=== PATIENT | male | born 1980 | race Caucasian/White ===

== ENCOUNTER 2017-12-31 14:11 | Emergency (ER) | payer MEDICAID ==
[~2017-12-31 14:11] MED LIST: HYDR-565 PO; NAPR-996 PO
[2018-01-01] MEDS ORDERED: BACDS PO (07:32)
[2018-01-01] MEDS ORDERED: CEPH500C5 PO (07:32)
[2018-01-01] MEDS ORDERED: ONDA4TAB12 PO (07:32)
[2018-01-01] MEDS ORDERED: HYDR-3965 PO (07:43)
== END 2017-12-31 15:22 | disposition left against medical advice (07) ==
LOC: ER 14:11
DX: M79.643 Pain in unspecified hand (principal); Z53.21 Procedure and treatment not carried out due to patient leaving prior to being seen by health care provider

== ENCOUNTER 2018-01-01 06:53 | Emergency (ER) | payer MEDICAID ==
[~2018-01-01] VITALS: Ht 172.7 cm; Wt 74.0 kg
[2018-01-01] MEDS ORDERED: piperacillin/tazo 3.375gm/50ml 50 ML IV STA (07:18)
[2018-01-01] MEDS ORDERED: gentamicin inj 350 MG in normal saline 100ml IV soln 100 ML IV STA (07:18)
[2018-01-01] MEDS ORDERED: CEPH500C5 PO (07:32)
[2018-01-01] MEDS ORDERED: ONDA4TAB12 PO (07:32)
[2018-01-01] MEDS ORDERED: BACDS PO (07:32)
[2018-01-01] MEDS ORDERED: HYDR-3965 PO (07:43)
[2018-01-01 09:50] VITALS: BP 102/56
== END 2018-01-01 09:52 | disposition home or self-care (01) ==
LOC: ER 06:53
DX: T81.4XXA Infection following a procedure, initial encounter (principal); Z86.14 Personal history of Methicillin resistant Staphylococcus aureus infection; Z56.0 Unemployment, unspecified; Z59.0 Homelessness; Z79.899 Other long term (current) drug therapy; Y83.9 Surgical procedure, unspecified as the cause of abnormal reaction of the patient, or of later complication, without mention of misadventure at the time of the procedure; Y92.89 Other specified places as the place of occurrence of the external cause
CPT/HCPCS: 96365; 96367; 99284; J1580; J2543; J7030

== ENCOUNTER 2018-01-06 20:07 | Emergency (ER) | payer MEDICAID ==
[~2018-01-06] VITALS: Ht 172.7 cm; Wt 74.5 kg
[~2018-01-06 20:07] MED LIST changes: +BACDS PO; +CEPH500C5 PO; +HYDR-3965 PO; +ONDA4TAB12 PO
[2018-01-06] MEDS ORDERED: HYDROcodone/acetaminophen 10/325mg tab PO ONE (21:50)
[2018-01-06 22:18] LABS: BASOPHILS # (AUTO) 0.1 X10'3 (0-0.2); BASOPHILS % (AUTO) 0.6 % (0-1); EOSINOPHILS # (AUTO) 0.2 X10'3 (0-0.9); EOSINOPHILS % (AUTO) 2.3 % (0-6); HEMATOCRIT 39.1 % (42.0-52.0); HEMOGLOBIN 13.3 g/dl (14.0-17.9); LYMPHOCYTES # (AUTO) 2.1 X10'3 (1.1-4.8); LYMPHOCYTES % (AUTO) 19.9 % (21-51); MEAN CORPUSCULAR HEMOGLOBIN 31.1 PG (27.0-31.0); MEAN CORPUSCULAR VOLUME 91.7 FL (78-98); MEAN PLATELET VOLUME 6.2 FL (7.4-10.4); MONOCYTES # (AUTO) 0.7 X10'3 (0-0.9); MONOCYTES % (AUTO) 6.7 % (2-12); NEUTROPHILS # (AUTO) 7.4 X10'3 (1.8-7.7); NEUTROPHILS % (AUTO) 70.5 % (42-75); PLATELET COUNT 398 X10'3 (140-440); RED BLOOD COUNT 4.26 X10'6 (4.70-6.10); RED CELL DISTRIBUTION WIDTH 13.6 % (11.5-14.5); WHITE BLOOD COUNT 10.6 X10'3 (4.5-11.0)
[2018-01-06 22:27] LABS: ALBUMIN 3.4 G/DL (3.4-5.0); BLOOD UREA NITROGEN 17 MG/DL (7-18); BUN/CREATININE RATIO 14.7 (5.4-32.0); CALCIUM 9.2 MG/DL (8.5-10.1); CHLORIDE 102 MMOL/L (99-107); CREATININE 1.16 MG/DL (0.60-1.10); GLUCOSE 123 MG/DL (70-104); TOTAL CARBON DIOXIDE 29.2 MMOL/L (24-32); eGFR 71 ML/MIN
[2018-01-06 22:40] LABS: ANION GAP 7 (8-16); SODIUM 138 MMOL/L (135-145)
[2018-01-06] MEDS ORDERED: IBUP-1984 PO (22:51)
[2018-01-06] MEDS ORDERED: HYDR-3965 PO (22:51)
[2018-01-06 23:00] VITALS: BP 136/82
== END 2018-01-06 23:14 | disposition home or self-care (01) ==
LOC: ER 20:08
DX: G89.18 Other acute postprocedural pain (principal); M79.89 Other specified soft tissue disorders; M25.531 Pain in right wrist; Z59.0 Homelessness; Z56.0 Unemployment, unspecified; Z98.890 Other specified postprocedural states
CPT/HCPCS: 29125; 36415; 73130; 80048; 85025; 99284

== ENCOUNTER 2018-09-11 22:44 | Emergency (ER) | payer MEDICAID ==
[~2018-09-11 22:44] MED LIST changes: -BACDS PO; -HYDR-3965 PO; -HYDR-565 PO
== END 2018-09-11 22:56 | disposition left against medical advice (07) ==
LOC: ER 22:45
DX: R51 Headache (principal); Z53.21 Procedure and treatment not carried out due to patient leaving prior to being seen by health care provider

== ENCOUNTER 2019-11-25 01:57 | Emergency (ER) | payer MEDICAID ==
[~2019-11-25] VITALS: Ht 172.7 cm; Wt 72.7 kg
[~2019-11-25 01:57] MED LIST changes: -CEPH500C5 PO
[2019-11-25] MEDS ORDERED: tropicamide 0.5% ophthalmic drops 15ml EACHEYE ONE (02:15)
[2019-11-25] MEDS ORDERED: pilocarpine 2% ophthalmic drops 15ml EACHEYE ONE (02:15)
[2019-11-25] MEDS ORDERED: oxyCODONE/APAP 10/325mg tablet PO ONE (02:15)
[2019-11-25] MEDS ORDERED: ERYT1OIN6 EACHEYE (02:45)
[2019-11-25] MEDS ORDERED: erythromycin ophthalmic ointment 1gm tube EACHEYE ONE (02:45)
[2019-11-25] MEDS ORDERED: OXYC-150 PO (02:45)
--- NOTE | 2019-11-25 02:53 | NUR ---
Carlos ferro in [facility] - 11/25/19 at 0256 by BAO CHEST X RAY AT BEDSIDE
[2019-11-25 03:18] VITALS: BP 116/83
== END 2019-11-25 03:20 | disposition home or self-care (01) ==
LOC: ER 01:58
DX: H16.133 Photokeratitis, bilateral (principal); Z59.0 Homelessness; Z56.0 Unemployment, unspecified; Z86.14 Personal history of Methicillin resistant Staphylococcus aureus infection; Z98.890 Other specified postprocedural states
CPT/HCPCS: 99283; 99284

== ENCOUNTER 2019-12-03 06:23 | Emergency (ER) | payer MEDICAID ==
[~2019-12-03] VITALS: Ht 172.7 cm; Wt 75.0 kg
[~2019-12-03 06:23] MED LIST changes: +ERYT1OIN6 EACHEYE; +OXYC-150 PO
[2019-12-03] MEDS ORDERED: bupivacaine 0.25%/epinephrine 1:200,000 inj (contains preserv. MDV) IJ ONE (08:55)
[2019-12-03] MEDS ORDERED: penicillin V potassium 500mg tablet PO ONE (08:55)
[2019-12-03] MEDS ORDERED: PENI500T2 PO (09:20)
[2019-12-03] MEDS ORDERED: IBUP-1984 PO (09:20)
[2019-12-03 10:07] VITALS: BP 122/79
== END 2019-12-03 10:09 | disposition home or self-care (01) ==
LOC: ER 06:23
DX: K04.7 Periapical abscess without sinus (principal); K03.81 Cracked tooth; Z86.14 Personal history of Methicillin resistant Staphylococcus aureus infection; Z98.890 Other specified postprocedural states; Z56.0 Unemployment, unspecified; Z79.899 Other long term (current) drug therapy
CPT/HCPCS: 64400; 99284

== ENCOUNTER 2020-02-10 22:05 | Emergency (ER) | payer MEDICAID ==
[~2020-02-10] VITALS: Ht 172.7 cm; Wt 72.7 kg
[~2020-02-10 22:05] MED LIST changes: -ERYT1OIN6 EACHEYE
[2020-02-10] MEDS ORDERED: proparacaine 0.5% ophthalmic drops 15ml EACHEYE ONE (22:20)
[2020-02-10] MEDS ORDERED: HYDR-3965 PO (22:37)
[2020-02-10] MEDS ORDERED: ERYT1OIN6 EACHEYE (22:37)
[2020-02-10] MEDS ORDERED: HYDROcodone/acetaminophen 5mg/325mg tablet PO ONE (22:40)
[2020-02-10 22:46] VITALS: BP 106/53
== END 2020-02-10 23:08 | disposition home or self-care (01) ==
LOC: ER 22:05
DX: H57.89 Other specified disorders of eye and adnexa (principal); H57.13 Ocular pain, bilateral; Z98.890 Other specified postprocedural states; Z56.0 Unemployment, unspecified; Z86.14 Personal history of Methicillin resistant Staphylococcus aureus infection; Z79.2 Long term (current) use of antibiotics; Z79.899 Other long term (current) drug therapy
CPT/HCPCS: 99283

== ENCOUNTER 2020-03-01 20:48 | Emergency (ER) | payer MEDICAID ==
[~2020-03-01] VITALS: Ht 172.7 cm; Wt 72.7 kg
[2020-03-01] MEDS ORDERED: normal saline 1000ML IV soln IVB ONE (21:05)
[2020-03-01] MEDS ORDERED: ondansetron/PF 4mg/2ml inj IV ONE (21:05)
--- NOTE | 2020-03-01 21:15 | NUR ---
assumed care of patient so primary nurse can break
[2020-03-01] MEDS ORDERED: iohexol 300mg/ml 100ml inj. ONE (21:17)
[2020-03-01 21:24] LABS: BASOPHILS % (AUTO) 0.3 % (0-1); EOSINOPHILS # (AUTO) 0.1 X10'3 (0-0.9); EOSINOPHILS % (AUTO) 0.4 % (0-6); HEMATOCRIT 40.1 % (42.0-52.0); HEMOGLOBIN 13.5 g/dl (14.0-17.9); LYMPHOCYTES % (AUTO) 7.4 % (21-51); MEAN CORPUSCULAR HEMOGLOBIN 31.1 PG (27.0-31.0); MEAN CORPUSCULAR HGB CONC 33.5 g/dL (33.0-36.5); MEAN CORPUSCULAR VOLUME 92.8 FL (78-98); MEAN PLATELET VOLUME 6.4 FL (7.4-10.4); NEUTROPHILS # (AUTO) 10.9 X10'3 (1.8-7.7); NEUTROPHILS % (AUTO) 77.9 % (42-75); PLATELET COUNT 316 X10'3 (140-440); RED BLOOD COUNT 4.33 X10'6 (4.70-6.10); RED CELL DISTRIBUTION WIDTH 13.4 % (11.5-14.5)
[2020-03-01 21:28] LABS: CLARITY,URINE CLOUDY (Clear); COLOR,URINE YELLOW (Yellow); GLUCOSE, URINE NEGATIVE (Neg); KETONES,URINE NEGATIVE (Neg); LEUKOCYTE ESTERASE ,URINE LARGE (Neg); NITRITES, URINE NEGATIVE (Neg); OCCULT BLOOD,URINE SMALL (Neg); PROTEIN,URINE 100 mg/dl (Neg)
--- NOTE | 2020-03-01 21:31 | NUR ---
pt to ct with geological technician Hilda
[2020-03-01 21:34] LABS: ALANINE AMINOTRANSFERASE 15 U/L (12-78); ALBUMIN 3.3 G/DL (3.4-5.0); ALBUMIN/GLOBULIN RATIO 0.8 (1.1-1.5); ALKALINE PHOSPHATASE 73 IU/L (46-116); ANION GAP 2 (8-16); ASPARTATE AMINO TRANSFERASE 16 U/L (10-37); BILIRUBIN,TOTAL 1.1 MG/DL (0.1-1.0); BLOOD UREA NITROGEN 9 MG/DL (7-18); BUN/CREATININE RATIO 8.8 (5.4-32.0); CHLORIDE 100 MMOL/L (99-107); CREATININE 1.02 MG/DL (0.60-1.10); GLUCOSE 114 MG/DL (70-104); POTASSIUM 4.2 MMOL/L (3.5-5.1); SODIUM 133 MMOL/L (135-145); TOTAL CARBON DIOXIDE 30.8 MMOL/L (24-32); TOTAL PROTEIN 7.3 G/DL (6.4-8.2); eGFR 82 ML/MIN
[2020-03-01 21:38] LABS: UA COLLECTION TYPE URINAL; URINE AMPHETAMINE SCREEN POSITIVE (Neg); URINE BARBITUATE SCREEN NEGATIVE (Neg); URINE BENZODIAZEPINES SCREEN NEGATIVE (Neg); URINE CANNABINOID SCREEN NEGATIVE (Neg); URINE COCAINE SCREEN NEGATIVE (Neg); URINE METHADONE SCREEN NEGATIVE (Neg); URINE OPIATE SCREEN NEGATIVE (Neg); URINE PHENCYCLIDINE SCREEN NEGATIVE (Neg)
[2020-03-01 21:39] LABS: BACTERIA,URINE 4+ /HPF (Neg); SQUAMOUS EPITHELIAL CELL,UR FEW /LPF (FEW); WBC,URINE 50-100 /HPF (0-4)
[2020-03-01] MEDS ORDERED: CefTRIAXone/D5W-Rocephin 1gm 50 ML IV ONE (21:45)
--- NOTE | 2020-03-01 21:45 | NUR ---
pt back from ct
[2020-03-01] MEDS ORDERED: CEPH250T PO (22:28)
[2020-03-01] MEDS ORDERED: DOXY100C43 PO (22:28)
[2020-03-01 22:53] VITALS: BP 118/58
== END 2020-03-01 22:56 | disposition home or self-care (01) ==
LOC: ER 20:48
DX: R10.31 Right lower quadrant pain (principal); N10 Acute pyelonephritis; R50.9 Fever, unspecified; R11.2 Nausea with vomiting, unspecified; Z86.14 Personal history of Methicillin resistant Staphylococcus aureus infection; Z98.890 Other specified postprocedural states; Z56.0 Unemployment, unspecified; Z79.2 Long term (current) use of antibiotics
CPT/HCPCS: 36415; 74177; 80053; 80305; 81001; 85025; 87077; 87088; 87186; 87491; 87591; 96361; 96365; 96375; 99285; J0696; J2405; J7030; Q9967

== ENCOUNTER 2020-04-24 10:37 | Emergency (ER) | payer MEDICAID ==
[~2020-04-24] VITALS: Ht 172.7 cm; Wt 72.7 kg
[2020-04-24] MEDS ORDERED: TETRACAINE 0.5% 4 ML OPHTHALMIC DROPS RIGHTEYE ONE (11:10)
[2020-04-24] MEDS ORDERED: erythromycin ophthalmic ointment 1gm tube RIGHTEYE ONE (11:10)
[2020-04-24] MEDS ORDERED: proparacaine 0.5% ophthalmic drops 15ml RIGHTEYE ONE (11:20)
[2020-04-24] MEDS ORDERED: ERYT1OIN6 RIGHTEYE (12:43)
[2020-04-24] MEDS ORDERED: HYDR-4353 PO (12:43)
--- NOTE | 2020-04-24 12:45 | NUR ---
eye was irrigated per providers orders, foreign body was removed, provider was made aware.
[2020-04-24 13:09] VITALS: BP 117/78
== END 2020-04-24 13:11 | disposition home or self-care (01) ==
LOC: ER 10:38
DX: S05.51XA Penetrating wound with foreign body of right eyeball, initial encounter (principal); H57.11 Ocular pain, right eye; Z86.14 Personal history of Methicillin resistant Staphylococcus aureus infection; Z98.890 Other specified postprocedural states; Z56.0 Unemployment, unspecified; Z79.899 Other long term (current) drug therapy; X58.XXXA Exposure to other specified factors, initial encounter; Y93.89 Activity, other specified; Y92.89 Other specified places as the place of occurrence of the external cause; Y99.8 Other external cause status
CPT/HCPCS: 65205; 65222; 99284

== ENCOUNTER 2021-06-27 08:25 | Emergency (ER) | payer MEDICAID ==
[~2021-06-27] VITALS: Ht 172.7 cm; Wt 72.7 kg
[2021-06-27 08:33] VITALS: BP 114/81
[2021-06-27] MEDS ORDERED: PENI500T2 PO (10:22)
== END 2021-06-27 10:35 | disposition home or self-care (01) ==
LOC: ER 08:25
DX: K04.7 Periapical abscess without sinus (principal); Z88.0 Allergy status to penicillin; Z79.899 Other long term (current) drug therapy; Z86.14 Personal history of Methicillin resistant Staphylococcus aureus infection; Z56.0 Unemployment, unspecified
CPT/HCPCS: 99283

== ENCOUNTER 2021-09-10 08:33 | Emergency (ER) | payer MEDICAID ==
[~2021-09-10] VITALS: Ht 172.7 cm; Wt 63.5 kg
[2021-09-10 08:37] VITALS: BP 125/80
--- NOTE | 2021-09-10 09:07 | NUR ---
notified payton guillen that pt left the lobby and hospital premesis .
== END 2021-09-10 09:51 | disposition left against medical advice (07) ==
LOC: ER 08:34
DX: R42 Dizziness and giddiness (principal); Z59.00 Homelessness unspecified; Z56.0 Unemployment, unspecified
CPT/HCPCS: 99281; 99283

== ENCOUNTER 2022-01-25 19:56 | Emergency (ER) | payer MEDICAID ==
[~2022-01-25] VITALS: Ht 172.7 cm; Wt 77.0 kg
[2022-01-25 20:09] VITALS: BP 124/76
[2022-01-25] MEDS ORDERED: fluorescein sod 1mg ophthalmic strip RIGHTEYE ONE (21:15)
[2022-01-25] MEDS ORDERED: TETRACAINE 0.5% 4 ML OPHTHALMIC DROPS RIGHTEYE ONE (21:15)
[2022-01-25] MEDS ORDERED: proparacaine 0.5% ophthalmic drops 15ml RIGHTEYE ONE (21:20)
[2022-01-26] MEDS ORDERED: ERYT1OIN6 LEFTEYE (03:48)
== END 2022-01-26 02:30 | disposition left against medical advice (07) ==
LOC: ER 19:57
DX: T15.01XA Foreign body in cornea, right eye, initial encounter (principal); X58.XXXA Exposure to other specified factors, initial encounter; Y93.89 Activity, other specified; Y92.89 Other specified places as the place of occurrence of the external cause; Y99.8 Other external cause status
CPT/HCPCS: 65220; 99284

== ENCOUNTER 2022-03-20 07:02 | Emergency (ER) | payer MEDICAID ==
[~2022-03-20] VITALS: Ht 172.7 cm; Wt 77.0 kg
[2022-03-20 07:25] VITALS: BP 113/75
== END 2022-03-20 09:17 | disposition left against medical advice (07) ==
LOC: ER 07:03
DX: R10.30 Lower abdominal pain, unspecified (principal); Z53.21 Procedure and treatment not carried out due to patient leaving prior to being seen by health care provider

== ENCOUNTER 2022-09-15 06:22 | Emergency (ER) | payer MEDICAID ==
[~2022-09-15] VITALS: Ht 172.7 cm; Wt 75.0 kg
[2022-09-15 06:29] VITALS: BP 129/83
[2022-09-15] MEDS ORDERED: erythromycin ophthalmic ointment 1gm tube LEFTEYE ONE (07:55)
[2022-09-15] MEDS ORDERED: ERYT1OIN6 LEFTEYE (07:59)
== END 2022-09-15 08:30 | disposition home or self-care (01) ==
LOC: ER 06:23
DX: H57.12 Ocular pain, left eye (principal); H57.89 Other specified disorders of eye and adnexa; Z79.899 Other long term (current) drug therapy; Z86.14 Personal history of Methicillin resistant Staphylococcus aureus infection; Z79.1 Long term (current) use of non-steroidal anti-inflammatories (NSAID)
CPT/HCPCS: 99283

== ENCOUNTER → 2022-09-26 | Emergency (ER) | payer MEDICAID ==
[~2022-09-26] VITALS: Ht 172.7 cm; Wt 75.0 kg
[~2022-09-26] MED LIST changes: +ERYT1OIN6 LEFTEYE
[2022-09-26 02:25] VITALS: BP 148/97
== END | disposition left against medical advice (07) ==
LOC: ER 02:21
DX: H57.13 Ocular pain, bilateral (principal); Z53.21 Procedure and treatment not carried out due to patient leaving prior to being seen by health care provider

== ENCOUNTER 2023-02-08 23:41 | Emergency (ER) | payer MEDICAID ==
[~2023-02-08] VITALS: Ht 172.7 cm; Wt 74.8 kg
[~2023-02-08 23:41] MED LIST changes: -ERYT1OIN6 LEFTEYE
[2023-02-09 00:02] VITALS: BP 110/64
[2023-02-09 00:49] LABS: CLARITY,URINE CLEAR (Clear); COLOR,URINE YELLOW (Yellow); GLUCOSE, URINE NEGATIVE (Neg); KETONES,URINE NEGATIVE (Neg); LEUKOCYTE ESTERASE ,URINE NEGATIVE (Neg); NITRITES, URINE NEGATIVE (Neg); OCCULT BLOOD,URINE NEGATIVE (Neg); PROTEIN,URINE NEGATIVE (Neg); UROBILINOGEN,URINE 0.2 E.U/dL (0.2-1.0)
[2023-02-09 00:54] LABS: UA COLLECTION TYPE CLN CATCH MIDSTREAM
[2023-02-09 00:58] LABS: ALANINE AMINOTRANSFERASE 29 U/L (12-78); ALBUMIN 3.7 G/DL (3.4-5.0); ALKALINE PHOSPHATASE 76 IU/L (46-116); ANION GAP 7 (8-16); ASPARTATE AMINO TRANSFERASE 23 U/L (10-37); BILIRUBIN,TOTAL 0.5 MG/DL (0.1-1.0); BLOOD UREA NITROGEN 20 MG/DL (7-18); BUN/CREATININE RATIO 22.7 (10.0-20.0); CALCIUM 9.3 MG/DL (8.5-10.1); CHLORIDE 106 MMOL/L (99-107); CREATININE 0.88 MG/DL (0.60-1.10); ETHANOL < 0.010 GM/DL (0.0-0.010); GLUCOSE 103 MG/DL (70-104); POTASSIUM 3.9 MMOL/L (3.5-5.1); SODIUM 141 MMOL/L (135-145); TOTAL CARBON DIOXIDE 28.4 MMOL/L (24-32); TOTAL PROTEIN 7.5 G/DL (6.4-8.2); eGFR > 90 ML/MIN
[2023-02-09 01:20] LABS: URINE AMPHETAMINE SCREEN POSITIVE (Neg); URINE BARBITUATE SCREEN NEGATIVE (Neg); URINE BENZODIAZEPINES SCREEN NEGATIVE (Neg); URINE CANNABINOID SCREEN NEGATIVE (Neg); URINE COCAINE SCREEN NEGATIVE (Neg); URINE METHADONE SCREEN NEGATIVE (Neg); URINE OPIATE SCREEN NEGATIVE (Neg); URINE PHENCYCLIDINE SCREEN NEGATIVE (Neg)
[2023-02-09 02:05] LABS: BASOPHILS # (AUTO) 0.1 X10'3 (0-0.2); BASOPHILS % (AUTO) 1.1 % (0-1); EOSINOPHILS # (AUTO) 0.5 X10'3 (0-0.9); EOSINOPHILS % (AUTO) 4.9 % (0-6); HEMATOCRIT 38.4 % (42.0-52.0); HEMOGLOBIN 12.7 g/dl (14.0-17.9); LYMPHOCYTES # (AUTO) 2.9 X10'3 (1.1-4.8); LYMPHOCYTES % (AUTO) 31.4 % (21-51); MEAN CORPUSCULAR HEMOGLOBIN 30.6 PG (27.0-31.0); MEAN CORPUSCULAR VOLUME 92.9 FL (78-98); MEAN PLATELET VOLUME 7.5 FL (7.4-10.4); MONOCYTES % (AUTO) 11.3 % (2-12); NEUTROPHILS # (AUTO) 4.7 X10'3 (1.8-7.7); NEUTROPHILS % (AUTO) 51.3 % (42-75); PLATELET COUNT 305 X10'3 (140-440); RED BLOOD COUNT 4.13 X10'6 (4.70-6.10); RED CELL DISTRIBUTION WIDTH 13.5 % (11.5-14.5); WHITE BLOOD COUNT 9.2 X10'3 (4.5-11.0)
== END 2023-02-09 02:28 | disposition home or self-care (01) ==
LOC: ER 23:42
DX: F19.10 Other psychoactive substance abuse, uncomplicated (principal); R41.0 Disorientation, unspecified; R21 Rash and other nonspecific skin eruption; L29.9 Pruritus, unspecified; Z86.14 Personal history of Methicillin resistant Staphylococcus aureus infection; Z59.00 Homelessness unspecified; Z56.0 Unemployment, unspecified; Z79.899 Other long term (current) drug therapy
CPT/HCPCS: 36415; 70450; 80053; 80305; 80320; 81003; 85025; 99284

== ENCOUNTER 2023-09-02 22:41 | Emergency (ER) | payer MEDICAID ==
[~2023-09-02] VITALS: Ht 172.7 cm; Wt 74.5 kg
[2023-09-02] MEDS ORDERED: AMOX500C2 PO (22:54)
[2023-09-02] MEDS ORDERED: acetaminophen 325mg tablet PO ONE (22:55)
[2023-09-02] MEDS ORDERED: ibuprofen tablet 400 MG TABLET PO ONE (22:55)
[2023-09-02 23:03] VITALS: BP 126/88; PULSE 100; RESP 16; TEMP 98.7; O2SAT 97
[2023-09-03] MEDS ORDERED: CLIN150C2 PO (22:42)
== END 2023-09-02 23:05 | disposition home or self-care (01) ==
LOC: ER 22:42
DX: K04.7 Periapical abscess without sinus (principal); K02.9 Dental caries, unspecified; Z86.14 Personal history of Methicillin resistant Staphylococcus aureus infection; Z59.00 Homelessness unspecified; Z56.0 Unemployment, unspecified; Z79.899 Other long term (current) drug therapy
CPT/HCPCS: 99283

== ENCOUNTER 2023-09-03 22:02 | Emergency (ER) | payer MEDICAID ==
[~2023-09-03] VITALS: Ht 172.7 cm; Wt 75.0 kg
[~2023-09-03 22:02] MED LIST changes: +AMOX500C2 PO
[2023-09-03 22:19] VITALS: BP 123/77; PULSE 108; RESP 18; TEMP 98.9; O2SAT 97
[2023-09-03] MEDS ORDERED: clindamycin 150mg capsule PO ONE (22:35)
[2023-09-03] MEDS ORDERED: ondansetron 4mg rapidly disintigrating tab PO ONE (22:35)
[2023-09-03] MEDS ORDERED: CLIN150C2 PO (22:42)
== END 2023-09-03 23:20 | disposition home or self-care (01) ==
LOC: ER 22:02
DX: K04.7 Periapical abscess without sinus (principal); Z86.14 Personal history of Methicillin resistant Staphylococcus aureus infection; Z79.899 Other long term (current) drug therapy
CPT/HCPCS: 99283

== ENCOUNTER 2024-03-29 01:31 | Emergency (ER) | payer MEDICAID ==
[~2024-03-29] VITALS: Ht 172.7 cm; Wt 75.0 kg
[~2024-03-29 01:31] MED LIST changes: -AMOX500C2 PO
[2024-03-29 01:38] VITALS: BP 129/93; PULSE 75; RESP 18; TEMP 98.4; O2SAT 99
== END 2024-03-29 03:01 | disposition left against medical advice (07) ==
LOC: ER 01:32
DX: S60.463A Insect bite (nonvenomous) of left middle finger, initial encounter (principal); W57.XXXA Bitten or stung by nonvenomous insect and other nonvenomous arthropods, initial encounter; Y93.89 Activity, other specified; Y92.89 Other specified places as the place of occurrence of the external cause; Y99.8 Other external cause status; Z53.21 Procedure and treatment not carried out due to patient leaving prior to being seen by health care provider

== ENCOUNTER 2024-05-07 02:11 | Emergency (ER) | payer MEDICAID ==
[~2024-05-07] VITALS: Ht 172.7 cm; Wt 75.0 kg
[~2024-05-07 02:11] MED LIST changes: +ONDA-243 PO; -ONDA4TAB12 PO
[2024-05-07 02:17] VITALS: BP 117/78; PULSE 99; RESP 14; TEMP 99; O2SAT 97
[2024-05-07] MEDS ORDERED: MUPI22OI30 TOP (02:54)
[2024-05-07] MEDS ORDERED: CEPH-585 PO (02:54)
[2024-05-07] MEDS ORDERED: SULF1TAB49 PO (02:54)
[2024-05-07] MEDS: sulfamethoxazole/trimethoprim DS (800/160mg) tablet PO ONE (03:13)
[2024-05-07] MEDS: cephalexin 500mg capsule PO ONE (03:13)
== END 2024-05-07 03:19 | disposition home or self-care (01) ==
LOC: ER 02:12
DX: L03.012 Cellulitis of left finger (principal); Z79.1 Long term (current) use of non-steroidal anti-inflammatories (NSAID); Z79.899 Other long term (current) drug therapy; Z98.890 Other specified postprocedural states; Z59.00 Homelessness unspecified; Z56.0 Unemployment, unspecified
CPT/HCPCS: 99283

== ENCOUNTER 2024-05-29 03:47 | Emergency (ER) | payer MEDICAID ==
[~2024-05-29] VITALS: Ht 172.7 cm; Wt 75.0 kg
[~2024-05-29 03:47] MED LIST changes: +CEPH-585 PO
[2024-05-29] MEDS ORDERED: LIDOcaine 1% W/epiNEPHrine 1:200,000 10ml vial IJ ONE (04:15)
[2024-05-29] MEDS: LIDOcaine 1% W/epiNEPHrine 1:100,000 20ml vial IJ ONE (04:28)
[2024-05-29] MEDS ORDERED: SULF1TAB49 PO (04:33)
[2024-05-29] MEDS: sulfamethoxazole/trimethoprim DS (800/160mg) tablet PO ONE (05:00)
[2024-05-29 05:04] VITALS: BP 121/76; PULSE 101; RESP 16; TEMP 97.9; O2SAT 100
== END 2024-05-29 05:09 | disposition home or self-care (01) ==
LOC: ER 03:48
DX: L02.31 Cutaneous abscess of buttock (principal); Z79.2 Long term (current) use of antibiotics; Z79.899 Other long term (current) drug therapy; Z86.14 Personal history of Methicillin resistant Staphylococcus aureus infection; Z59.00 Homelessness unspecified; Z56.0 Unemployment, unspecified
CPT/HCPCS: 10060; 99283

== ENCOUNTER → 2024-06-01 | Emergency (ER) | payer MEDICAID ==
[~2024-06-01] VITALS: Ht 172.7 cm; Wt 75.0 kg
[~2024-06-01] MED LIST changes: +BUPIVAcaine/PF 7.5mg/ml (0.75%) 10ml vial IJ ONE; +SULF1TAB49 PO; +sterile talc powder 5 GM, BUPIVAcaine 0.5% inj/PF 37.5 MG in normal saline 50ml IV soln... IPL ONE
[2024-06-01 01:05] VITALS: BP 128/86; PULSE 86; RESP 16; TEMP 98; O2SAT 97
[2024-06-01] MEDS: BUPIVAcaine 0.5% inj/PF 30 ML ONE (01:44)
[2024-06-01] MEDS: BUPIVAcaine 0.5% inj/PF 30 ml vial IV ONE (02:00)
== END | disposition home or self-care (01) ==
LOC: ER 01:00
DX: L02.512 Cutaneous abscess of left hand (principal); Z79.2 Long term (current) use of antibiotics; Z79.899 Other long term (current) drug therapy
CPT/HCPCS: 26010; 87070; 87077; 87186; 99283

== ENCOUNTER 2024-11-16 20:09 | Emergency (ER) | payer MEDICAID ==
[~2024-11-16] VITALS: Ht 172.7 cm; Wt 74.2 kg
[~2024-11-16 20:09] MED LIST changes: -BUPIVAcaine/PF 7.5mg/ml (0.75%) 10ml vial IJ ONE; -SULF1TAB49 PO; -sterile talc powder 5 GM, BUPIVAcaine 0.5% inj/PF 37.5 MG in normal saline 50ml IV soln... IPL ONE
[2024-11-16] MEDS ORDERED: SULF1TAB45 PO (21:19)
[2024-11-16] MEDS ORDERED: CEPH-585 PO (21:19)
[2024-11-16] MEDS: sulfamethoxazole/trimethoprim DS (800/160mg) tablet PO ONE (21:30)
[2024-11-16] MEDS: cephalexin 250mg capsule PO ONE (21:30)
[2024-11-16 21:50] VITALS: BP 132/80; PULSE 88; RESP 15; TEMP 98.2; O2SAT 98
== END 2024-11-16 21:54 | disposition home or self-care (01) ==
LOC: ER 20:10
DX: T81.49XA Infection following a procedure, other surgical site, initial encounter (principal); Z98.890 Other specified postprocedural states; Y92.89 Other specified places as the place of occurrence of the external cause
CPT/HCPCS: 99283

== ENCOUNTER 2025-01-22 03:29 | Emergency (ER) | payer MEDICAID ==
[~2025-01-22] VITALS: Ht 172.7 cm; Wt 76.5 kg
[~2025-01-22 03:29] MED LIST changes: +NAPR-1168 PO; -NAPR-996 PO
[2025-01-22 03:41] VITALS: BP 119/71; PULSE 81; O2SAT 98
[2025-01-22 04:39] VITALS: RESP 14
[2025-01-22] MEDS: proparacaine 0.5% ophthalmic drops 15ml EACHEYE ONE (04:39)
[2025-01-22] MEDS: ciprofloxacin 0.3% 2.5ml ophthalmic solution EACHEYE ONE (04:39)
[2025-01-22] MEDS: acetaminophen 325mg tablet PO ONE (04:39)
[2025-01-22] MEDS: ketorolac trometh 15mg/ml vial 15 MG/ML ML IM ONE (04:39)
[2025-01-22] MEDS ORDERED: HYDR-3965 PO (05:02)
[2025-01-22] MEDS ORDERED: ACET-812 PO (05:03)
[2025-01-22] MEDS ORDERED: IBUP-1984 PO (05:03)
[2025-01-22] MEDS ORDERED: CIPR2.5D21 EACHEYE (05:03)
[2025-01-22 05:08] VITALS: TEMP 97.6
== END 2025-01-22 05:18 | disposition home or self-care (01) ==
LOC: ER 03:30
DX: H16.133 Photokeratitis, bilateral (principal); Z59.00 Homelessness unspecified; Z56.0 Unemployment, unspecified; Z98.890 Other specified postprocedural states
CPT/HCPCS: 96372; 99284; J1885

== ENCOUNTER 2025-03-29 01:02 | Emergency (ER) | payer MEDICAID ==
[~2025-03-29] VITALS: Ht 172.7 cm; Wt 59.9 kg
[~2025-03-29 01:02] MED LIST changes: +ACET-812 PO
[2025-03-29 01:31] VITALS: TEMP 98.2
[2025-03-29 02:25] LABS: BASOPHILS % (AUTO) 0.4 % (0-1); EOSINOPHILS # (AUTO) 0.2 X10'3 (0-0.9); EOSINOPHILS % (AUTO) 1.6 % (0-6); HEMATOCRIT 37.2 % (42.0-52.0); HEMOGLOBIN 12.5 g/dl (14.0-17.9); LYMPHOCYTES # (AUTO) 2.1 X10'3 (1.1-4.8); LYMPHOCYTES % (AUTO) 17.6 % (21-51); MEAN CORPUSCULAR HEMOGLOBIN 30.4 PG (27.0-31.0); MEAN CORPUSCULAR HGB CONC 33.7 g/dL (33.0-36.5); MEAN CORPUSCULAR VOLUME 90.2 FL (78-98); MEAN PLATELET VOLUME 6.5 FL (7.4-10.4); MONOCYTES # (AUTO) 1.4 X10'3 (0-0.9); MONOCYTES % (AUTO) 11.9 % (2-12); NEUTROPHILS # (AUTO) 8.1 X10'3 (1.8-7.7); NEUTROPHILS % (AUTO) 68.5 % (42-75); PLATELET COUNT 242 X10'3 (140-440); RED BLOOD COUNT 4.12 X10'6 (4.70-6.10); RED CELL DISTRIBUTION WIDTH 13.7 % (11.5-14.5); WHITE BLOOD COUNT 11.8 X10'3 (4.5-11.0)
[2025-03-29 02:37] LABS: ALBUMIN 3.3 G/DL (3.4-5.0); ANION GAP 6 (8-16); BLOOD UREA NITROGEN 17 MG/DL (7-18); BUN/CREATININE RATIO 15.2 (10.0-20.0); CALCIUM 9.2 MG/DL (8.5-10.1); CHLORIDE 107 MMOL/L (99-107); CREATININE 1.12 MG/DL (0.60-1.10); GLUCOSE 125 MG/DL (70-104); POTASSIUM 4.1 MMOL/L (3.5-5.1); SODIUM 144 MMOL/L (135-145); TOTAL CARBON DIOXIDE 30.9 MMOL/L (24-32); eCRCL 72 ML/MIN; eGFR 72 ML/MIN
[2025-03-29] MEDS ORDERED: SULF1TAB49 PO (04:04)
--- NOTE | 2025-03-29 04:08 | Physician Documentation ---
History of Present Illness ~ Chief Complaint: Abscess Stated Complaint: LEG INFECTION Time Seen by MD: 03:37 Primary Medical Doctor: NONE Source: patient Mode of Arrival: POV Exam Limitations: no limitations HPI Chief Complaint: Swollen area Caveat: None other than him being a very poor historian Independent Historians: None History of Present Illness: Patient complains of redness and pain over the right shoulder and a swollen area over the left medial leg. Patient is unable to say when the symptoms began. Patient's pain is mild. Review of systems: All systems were reviewed and are negative except for what is indicated in the history of present illness. Past Medical History: Cellulitis, abscesses Past Surgical History: Unknown Social History: Homeless, methamphetamine abuse Medications: Reviewed as documented Nursing Notes Allergies: Reviewed as documented in Nursing Notes Medication Reconciliation Allergies: Coded Allergies: No Known Allergies (Unverified , 03/29/25) Scheduled Acetaminophen (Tylenol Extra Strength), 2 TABLET PO Q6H Cephalexin*Monohydrate* (Keflex*), 1 CAP PO QID Cephalexin*Monohydrate* (Keflex*), 1 CAP PO QID Scheduled PRN Naproxen (Naproxen), 1 TAB PO Q12H PRN for pain ONDANSETRON ODT 4mg tablet (Ondansetron Odt), 1 TABLET PO Q6H PRN for nausea/vomiting Oxycodone HCl/Acetaminophen (Percocet 10-325 mg Tablet), 1 TAB PO QID PRN PRN fo r pain Past Medical History Past Medical History: Cellulitis, MRSA Abscess, *PSYCH* Past Surgical History: orthopedic surgeries Patient History: Patient reports no known family medical history. Alcohol Use: None Drug Use: none Lives with: Other Lives In: Homeless Occupation: unemployed Review of Systems All Other Systems at this time: Reviewed and Negative ROS Patient denies any other acute symptoms other than above. All other systems are negative Physical Exam Vital Signs: RN Vital Signs have been reviewed: Yes, Temperature: 98.2, Source: Oral, Heart Rate: 73, Respiratory Rate: 15, BP: 117/56, Pulse Oximetry: 97, Weight: 59.900 Pulse Oximetry Reflects: adequate oxygenation Physical Exam General Appearance: No distress, sleeping, arousable, no distress, very poor hygiene, very disheveled Neck: supple, normal ROM, trachea midline Pulmonary: No respiratory distress, CTA, BS equal Cardiac: RRR, no murmur, rub or gallop, Extremities: normal ROM, no swelling, erythema over the right shoulder that is hot to touch. No evidence of phlegmon or abscess. Patient has a 2 cm red swollen area over the proximal medial left leg/knee that is not fluctuant and appears to be an early abscess. Skin: intact, dry, warm, no rashes, see extremity exam above Neuro: AAOx3, speech is clear, no focal motor weakness Psych: normal affect, no apparent hallucination, normal speech Progress Results/Orders Results/Orders Completed Orders - EDWARD BOWER MD Cbc/Diff (03/29/25 01:42) BMP (03/29/25 01:42) Vital Signs 03/29/25 03/29/25 01:31 02:53 Temp 98.2 Pulse 97 73 Resp 16 15 B/P (MAP) 116/66 117/56 (76) Pulse Ox 97 97 Laboratory Tests Test 03/29/25 02:14 White Blood Count 11.8 H Red Blood Count 4.12 L Hemoglobin 12.5 L Hematocrit 37.2 L Mean Corpuscular Volume 90.2 Mean Corpuscular Hemoglobin 30.4 Mean Corpuscular Hemoglobin Concent 33.7 Red Cell Distribution Width 13.7 Platelet Count 242 Mean Platelet Volume 6.5 L Neutrophils (%) (Auto) 68.5 Lymphocytes (%) (Auto) 17.6 L Monocytes (%) (Auto) 11.9 Eosinophils (%) (Auto) 1.6 Basophils (%) (Auto) 0.4 Neutrophils # (Auto) 8.1 H Lymphocytes # (Auto) 2.1 Monocytes # (Auto) 1.4 H Eosinophils # (Auto) 0.2 Basophils # (Auto) 0.0 CBC Comment Sodium Level 144 Potassium Level 4.1 Chloride Level 107 Carbon Dioxide Level 30.9 Anion Gap 6 L Blood Urea Nitrogen 17 Creatinine 1.12 H Estimated GFR/1.73 m2 72 BUN/Creatinine Ratio 15.2 Glucose Level 125 H Calcium Level 9.2 Albumin 3.3 L Chemistry Comments Medical Decision Making Findings Differential diagnosis includes but is not limited to: Giovanni abscess, abscess, cellulitis, phlegmon Laboratory data independent interpretation: CBC: Mild leukocytosis of 11.6 and mild anemia with a hemoglobin of 12.5 BMP: Remarkable except for creatinine of 1.12 Emergency department course/medical decision-making: Patient is homeless and presents with an early abscess over the left medial knee. There is nothing to drain. Patient also has some erythema over the right shoulder that appears more like sunburn then cellulitis. It is warm to touch. He has similar erythema to the left shoulder but to a much lesser degree in his not have to touch compared to the right. Since patient has an early abscess to the left medial knee/proximal leg he will be started on Bactrim. There was no evidence of an abscess to drain. Patient is likely using methamphetamine. Patient is afebrile and hemodynamically stable. Lab work is unremarkable except for mild leukocytosis. Patient is stable for discharge. Departure Time of Disposition: 04:03 Disposition: 01 HOME / SELF CARE / HOMELESS Impression: Primary Impression: Early abscess left leg Additional Impression: Possible cellulitis right shoulder Condition: Stable Discharge Instructions: Skin Abscess, [id number] Prescriptions Sulfamethoxazole/Trimethoprim (Bactrim Ds Tablet) 800 Mg-160 Mg Tablet 1 TAB PO Q12H for 10 Days, #20 TAB Prov: EDWARD BOWER MD 03/29/25 Education Educated: Patient Educated regarding: diagnosis, treatment Signature Scribe Signature: No scribe Attestation: No scribe EDWARD BOWER MD Mar 29, 2025 04:08
[2025-03-29] MEDS: sulfamethoxazole/trimethoprim DS (800/160mg) tablet PO ONE (04:21)
[2025-03-29 04:22] VITALS: BP 102/58; PULSE 82; RESP 15; O2SAT 99
== END 2025-03-29 04:29 | disposition home or self-care (01) ==
LOC: ER 01:03
DX: L02.416 Cutaneous abscess of left lower limb (principal); M25.511 Pain in right shoulder; F15.10 Other stimulant abuse, uncomplicated
CPT/HCPCS: 36415; 80048; 85025; 99283

== ENCOUNTER 2025-07-04 01:33 | Emergency (ER) | payer MEDICAID ==
[~2025-07-04] VITALS: Ht 172.7 cm; Wt 80.0 kg
--- NOTE | 2025-07-04 03:11 | Physician Documentation ---
History of Present Illness General Chief Complaint: Wound Re-Check Stated Complaint: SHOULDER WOUND Time Seen by MD: 03:11 Primary Medical Doctor: NONE History of Present Illness Initial Comments The patient is a 45-year-old male who presents with pustules to the arms and a abscess to the right deltoid region. Patient states he has had MRSA in the past he states he has had similar pustules. Patient states they been going on for about a week. Patient denies any fevers chills nausea or vomiting patient's symptoms are mild and persistent. Medication Reconciliation Allergies: Coded Allergies: No Known Allergies (Unverified , 03/29/25) Scheduled Acetaminophen (Tylenol Extra Strength), 2 TABLET PO Q6H Cephalexin*Monohydrate* (Keflex*), 1 CAP PO QID Sulfamethoxazole/Trimethoprim (Septra Ds Tab), 1 TAB PO BID Scheduled PRN Naproxen (Naproxen), 1 TAB PO Q12H PRN for pain ONDANSETRON ODT 4mg tablet (Ondansetron Odt), 1 TABLET PO Q6H PRN for nausea/vomiting Oxycodone HCl/Acetaminophen (Percocet 10-325 mg Tablet), 1 TAB PO QID PRN PRN for pain Past Medical History Past Medical History: Cellulitis, MRSA Abscess, *PSYCH* Past Surgical History: orthopedic surgeries Smoking: Non-Smoker Alcohol Use: None Drug Use: none Lives with: Other Lives In: Homeless Occupation: unemployed Review of Systems All Other Systems at this time: Reviewed and Negative Physical Exam Physical Exam Vital Signs: Temperature: 98.6, Heart Rate: 97, Respiratory Rate: 18, BP: 113/80, Pulse Oximetry: 98, Weight: 80.000 Oxygen Flow Rate: 0 Physical Exam VITALS: Reviewed and as above. GENERAL: Alert, no apparent distress. HEENT: Normocephalic, atraumatic, PERRL, EOMI, dry mucosa, no erythema BACK: No CVA tenderness, or swelling MUSCULOSKELETAL: No deformities, no edema SKIN: Warm and dry, patient has several excoriated pustules the dorsal aspect of the forearms. Patient also has an area of induration and erythema it is probably 1 cm to the right deltoid region with no fluctuance NEURO: Oriented x4, No motor or sensory deficit PSYCH: Normal mood and affect, no agitation Progress Results/Orders Results/Orders Completed Orders - JOSH SUAREZ MD Sulfamethox/Trimetho. Ds Tab (Septra Ds (07/04/25 03:20) Vital Signs 07/04/25 07/04/25 07/04/25 02:20 03:36 03:39 Temp 98.6 98.6 Pulse 97 96 94 Resp 18 16 16 B/P (MAP) 113/80 133/85 (101) 133/85 Pulse Ox 98 98 96 O2 Flow Rate 0 0 Medical Decision Making Findings The patient presents with a small abscess to his right deltoid region with no significant fluctuance the patient was offered incision and drainage and he is electing to try antibiotics 1st. The patient is nontoxic otherwise well- appearing. Prior hospitalizations have been reviewed. Pulse oximetry was interpreted as normal and adequate. The patient will be discharged on Bactrim. Departure Disposition: HOME / SELF CARE / HOMELESS Impression: Primary Impression: MRSA (methicillin resistant Staphylococcus aureus) infection Discharge Instructions: MRSA Infection, Diagnosis, Adult Referrals: NO PRIMARY CARE PROVIDER (PCP) Prescriptions Sulfamethoxazole/Trimethoprim (Septra Ds Tab) 800 Mg/160 Mg Tablet 1 TAB PO BID, #28 TAB Prov: JOSH SUAREZ MD 07/04/25 Signature Scribe Signature: no scribe Attestation: The note accurately reflects work and decisions made by me.Josh Suarez MD 07/07/25 15:44 JOSH SUAREZ MD Jul 04, 2025 03:11
[2025-07-04] MEDS ORDERED: SULF1TAB45 PO (03:16)
[2025-07-04] MEDS: sulfamethoxazole/trimethoprim DS (800/160mg) tablet PO ONE (03:36)
[2025-07-04 03:39] VITALS: BP 133/85; PULSE 94; RESP 16; TEMP 98.6; O2SAT 96
== END 2025-07-04 03:41 | disposition home or self-care (01) ==
LOC: ER 01:34
DX: M60.011 Infective myositis, right shoulder (principal); B95.62 Methicillin resistant Staphylococcus aureus infection as the cause of diseases classified elsewhere
CPT/HCPCS: 99283

== ENCOUNTER 2025-08-12 05:08 | Emergency (ER) | payer MEDICAID ==
[~2025-08-12] VITALS: Ht 172.7 cm; Wt 72.7 kg
[~2025-08-12 05:08] MED LIST changes: +SULF1TAB49 PO
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
[2025-08-12] MEDS: ondansetron 4mg rapidly disintigrating tab PO ONE (06:42)
[2025-08-12] MEDS: proparacaine 0.5% ophthalmic drops 15ml EACHEYE ONE (06:43)
[2025-08-12] MEDS: fluorescein sod 1mg ophthalmic strip EACHEYE ONE (06:43)
[2025-08-12] MEDS: erythromycin ophthalmic ointment 1gm tube EACHEYE ONE (07:13)
[2025-08-12 07:45] VITALS: BP 119/87; PULSE 71; RESP 15; TEMP 96.6; O2SAT 100
== END 2025-08-12 07:50 | disposition home or self-care (01) ==
LOC: ER 05:09
DX: H16.133 Photokeratitis, bilateral (principal); Z56.0 Unemployment, unspecified; Z59.00 Homelessness unspecified; Z86.14 Personal history of Methicillin resistant Staphylococcus aureus infection; Z79.899 Other long term (current) drug therapy; Z98.890 Other specified postprocedural states
CPT/HCPCS: 99283